=== PATIENT | male | born 1980 | race Caucasian/White ===

== ENCOUNTER 2017-11-08 09:21 | Emergency (ER) | payer OTHER ==
[~2017-11-08] VITALS: Ht 193 cm; Wt 147.4 kg
[~2017-11-08 09:21] MED LIST: EPIPEN 2-PAK1 MG/ML IM; MOTRIN800 MG PO; PERCOCET 325 MG1 TAB PO
[2017-11-08] MEDS ORDERED: NAPROXEN500 M2 PO (09:53)
[2017-11-08] MEDS ORDERED: GABAPENTIN100 M2 PO (09:54)
[2017-11-08] MEDS ORDERED: SANTYL30 GM TOP (09:54)
[2017-11-08] MEDS ORDERED: FUROSEMIDE40 M1 PO (09:54)
[2017-11-08] MEDS ORDERED: CLINDAMYCIN HC300 M1 PO (09:55)
[2017-11-08 10:18] LABS: ABSOLUTE BASOPHIL COUNT 0 /CUMM (0.0-0.2); ABSOLUTE EOSINOPHIL COUNT 0.1 /CUMM (0.0-0.7); ABSOLUTE GRANULOCYTE CT 6.6 /CUMM (1.4-6.5); ABSOLUTE LYMPH COUNT 1.7 /CUMM (1.2-3.4); ABSOLUTE MONOCYTE COUNT 0.6 /CUMM (0.10-0.60); BASOPHIL % 0.3 % (0.0-2.0); EOSINOPHIL % 0.6 % (0-5); HEMATOCRIT 44.2 % (42-52); MEAN CORPUSCULAR HGB 29.9 PG (27.0-31.0); MEAN CORPUSCULAR HGB CONC 33.8 G/DL (33.0-37.0); MEAN CORPUSCULAR VOLUME 88.6 FL (80.0-94.0); MEAN PLATELET VOLUME 9.5 FL (7.4-10.4); PLATELET COUNT 239 /CUMM (130-400); RBC DISTRIBUTION WIDTH 12.6 % (11.5-14.5); RED BLOOD CELL CT 4.99 /CUMM (4.70-6.10)
--- NOTE | 2017-11-08 10:32 | RADIOLOGY REPORT ---
EXAMINATION: XR TIBIA AND FIBULA, LEFT CLINICAL INFORMATION: Chronic nonhealing ulcer. COMPARISON: None TECHNIQUE: AP and lateral views of the left tibia and fibula were obtained. FINDINGS: No fracture or dislocation. No radiographic evidence of osteomyelitis. IMPRESSION: No radiographic evidence of osteomyelitis.
--- NOTE | 2017-11-08 11:54 | ULTRASOUND REPORT ---
EXAMINATION: US TRIPLEX LOWER EXTREMITY, LEFT CLINICAL INFORMATION: Left lower extremity pain, swelling, nonhealing ulcer. COMPARISON: None TECHNIQUE: Color-flow triplex imaging with spectral analysis and compression Doppler were performed on the lower extremity. FINDINGS: Respiratory variation, normal compression and augmented flow are noted throughout the lower extremity. The visualized common femoral vein, superficial femoral vein, profunda femoral vein, popliteal vein and midcalf peroneal and posterior tibial venous segments show no evidence of deep venous thrombosis. There is no Mckay's cyst. IMPRESSION: No evidence of deep venous thrombosis involving the lower extremity.
--- NOTE | 2017-11-08 11:57 | ULTRASOUND REPORT ---
EXAMINATION: US-LEFT LOW EXTR ARTERIAL DOP CLINICAL INFORMATION: Left lower extremity nonhealing ulcer. COMPARISON: None. TECHNIQUE: Real-time ultrasound and Doppler techniques (integrating B-mode 2-D vascular images, Doppler spectral analysis and color flow Doppler imaging) were utilized to interrogate the left lower extremity. FINDINGS: Left lower extremity: Common femoral artery: 99 cm/sec; triphasic waveform Superficial femoral artery proximal: 107 cm/sec; triphasic waveform Superficial femoral artery mid portion: 99 cm/sec; triphasic waveform Superficial femoral artery distal: 72 cm/sec; triphasic waveform Profunda artery: 81 cm/sec; triphasic waveform Popliteal artery: 59 cm/sec; triphasic waveform Posterior tibial artery: 58 cm/sec; triphasic waveform Anterior tibial artery: 85 cm/sec; triphasic waveform Dorsalis pedis artery: 59 cm/sec; triphasic waveform ADDITIONAL FINDINGS: None. IMPRESSION: Normal velocities and triphasic waveforms in the left lower extremity. Greater sensitivity and specificity can be obtained with pre-and post exercise PVRs with ELSIE calculations.
--- NOTE | 2017-11-08 13:43 | ED GENERAL ADULT ---
History of Present Illness General Chief Complaint: Lower Extremity Problems Stated Complaint: LEFT LEG INFECTIO +MRSA Source: patient Exam Limitations: no limitations Vital Signs & Intake/Output Vital Signs & Intake/Output Vital Signs Date Time Temp Pulse Resp B/P B/P Pulse O2 O2 Flow FiO2 Mean Ox Delivery Rate 11/08 1443 98.2 66 18 118/76 98 Room Air 11/08 1225 Room Air 11/08 1149 98.5 74 20 129/71 97 Room Air 11/08 0927 98.2 89 20 144/91 97 Room Air ED Intake and Output 11/09 0000 11/08 1200 Intake Total 0 Output Total 0 Balance 0 Intake, Oral 0 Output, Urine 0 Patient 325 lb Weight Weight Reported by Patient Measurement Method Allergies Coded Allergies: Penicillins (Intermediate, RASH 11/08/17) Sulfa (Sulfonamide Antibiotics) (UNKNOWN 11/08/17) epinephrine (UNKNOWN 11/08/17) ONLY EPI PEN Reconcile Medications Clindamycin HCl 300 MG CAPSULE 1 CAP PO Q6 ANTIBIOTIC, INFECTION (Reported) Collagenase Clostridium Hist. (Santyl) 250 UNIT/GRAM OINT...G. 1 NINFA TOP DAILY WOUND (Reported) Furosemide 40 MG TABLET 1 TAB PO DAILY WATER RETENTION (Reported) Gabapentin 100 MG CAPSULE 1 CAP PO TID PAIN (Reported) Naproxen 500 MG TABLET 1 TAB PO BID PAIN (Reported) Triage Note: PT TO ED MRSA TO LLE WOUND. PT HAS BEEN ON PO ABX WITH NO IMPROVEMENT. Triage Nurses Notes Reviewed? yes Onset: Gradual Duration: week(s): (FEBRUARY 2017), better, changing over time, continues in ED Timing: recent history Injury Environment: home Severity: mild, moderate HPI: 37-year-old male history of hypertension hyperlipidemia presents for evaluation of a chronic wound to his left lower extremity. Patient reports that in February of this year he was incarcerated and got a cut in his left lower extremity. He reports the wound has never healed and has been treated with antibiotics multiple times for possible infections. He states he's been treated with Bactrim greater than 5 times and is currently on clindamycin. He feels that the wound appears significantly improved from when it first started but is still present. He was started on Clinda 4 days ago and has been taking it as directed. His primary care doctor took a swab of the wound that was polymicrobial and included MRSA pseudomonas and group B strep. His primary care doctor also referred him to a wound center but he has not yet been seen. Patient denies any fevers the redness is not spreading and is actually receded since first starting. No chest pain or shortness of breath. No difficulty walking. Past History Travel History Traveled to [place] past 21 day No Medical History Any Pertinent Medical History? see below for history Surgical History Surgical History: non-contributory Psychosocial History What is your primary language Indian Tobacco Use: Quit >30 days ago ETOH Use: denies use Illicit Drug Use: denies illicit drug use Family History Hx Contributory? No Review of Systems Review of Systems Constitutional: Reports: no symptoms. EENTM: Reports: no symptoms. Respiratory: Reports: no symptoms. Cardiovascular: Reports: no symptoms. GI: Reports: no symptoms. Genitourinary: Reports: no symptoms. Musculoskeletal: Reports: no symptoms. Skin: Reports: see HPI, erythema. Neurological/Psychological: Reports: no symptoms. Hematologic/Endocrine: Reports: no symptoms. Immunologic/Allergic: Reports: no symptoms. All Other Systems: Reviewed and Negative Physical Exam Physical Exam General Appearance: well developed/nourished, no apparent distress, alert, awake Head: atraumatic, normal appearance Eyes: Bilateral: normal appearance, EOMI. Ears, Nose, Throat: hearing grossly normal Neck: normal inspection, supple, full range of motion Respiratory: normal breath sounds, chest non-tender, no respiratory distress, lungs clear Cardiovascular: regular rate/rhythm, normal peripheral pulses Back: normal inspection, normal range of motion, no vertebral tenderness Extremities: THERE IS MILD SWELLING TO THE LEFT LOWER EXTREMITY. tHERE IS A 1.5 CM DIAMETER ULCERATION TO THE LATERAL ASPECT OF THE LEFT LOWER LEG. tHERE IS SOME SURROUNDING SALMON-COLORED TISSUE. nO FOCAL FLUCTUANT AREAS. tHERE IS SEROUS DISCHARGE NO PUS DISCHARGE. nO LYMPHATIC STREAKING FOR RANGE OF MOTION OF THE ANKLE AND KNEE INTACT WITHOUT PAIN dp AND pt PULSES PRESENT BY dOPPLER. tHERE IS SHINY ATROPHIC SKIN WITHOUT HAIR INDICATING THERE MAY BE PERIPHERAL VASCULAR DISEASE THERE ARE MULTIPLE OTHER HEALED ULCERATED LESIONS TO THE FOOT AND LOWER LEG Neurologic/Psych: no motor/sensory deficits, awake, alert, oriented x 3, normal gait, normal mood/affect Skin: intact, normal color, warm/dry Lymphatic: no anterior cervical imelda Core Measures ACS in differential dx? No CVA/TIA Diagnosis: No Sepsis Present: No Sepsis Focused Exam Completed? No Progress Differential Diagnoses I considered the following diagnoses in my evaluation of the patient: [ Cellulitis, DVT, venous stasis ulcer, peripheral vascular disease, osteomyelitis , abscess] Plan of Care: Orders Procedure Date/time Status Add-on Test (ER Only) 11/08 953 Active BLOOD CULTURE 11/08 932 Active LACTIC ACID 11/08 932 Complete WESTERGREN SED RATE 11/08 932 Complete C-REACTIVE PROTEIN 11/08 932 Complete COMPREHENSIVE METABOLIC PANEL 11/08 932 Complete CBC WITHOUT DIFFERENTIAL 11/08 932 Complete Laboratory Tests 11/08/17 1233: Lactic Acid Cancelled 11/08/17 1003: Anion Gap 12, Estimated GFR > 60, BUN/Creatinine Ratio 24.3, Glucose 138 H, Lactic Acid 1.4, Calcium 9.4, Total Bilirubin 0.3, AST 32, ALT 34, Alkaline Phosphatase 82, C-Reactive Prot, Quant 2.1 H, Total Protein 7.7, Albumin 4.2, Globulin 3.5, Albumin/Globulin Ratio 1.2, CBC w Diff NO MAN DIFF REQ, RBC 4.99, MCV 88.6, MCH 29.9, MCHC 33.8, RDW 12.6, MPV 9.5, Gran % 73.0, Lymphocytes % 19.1 L, Monocytes % 7.0, Eosinophils % 0.6, Basophils % 0.3, Absolute Granulocytes 6.6 H, Absolute Lymphocytes 1.7, Absolute Monocytes 0.6, Absolute Eosinophils 0.1, Absolute Basophils 0, ESR Westergren 34 H Microbiology 11/08 1029 BLOOD: Blood Culture - RECD 11/08 1003 BLOOD: Blood Culture - RECD Patient is here for evaluation of a chronic wound to his left lower extremity. It is been treated with antibiotics multiple multiple times he currently is on clindamycin which she has been taking for the past 4 days. He recently was referred to a wound center but has not yet made an appointment. He was sent in by his primary care doctor for further evaluation. The wound does not appear to be obviously cellulitic. There is some surrounding salmon-colored tissue but no lymphatic streaking no purulent discharge suspect this may be a chronic nonhealing wound related more to peripheral vascular disease. Patient has pulses that are present by Doppler only he has skin changes associated with peripheral vascular disease. Basic blood work was obtained and is negative for a white count patient denies fever negative lactic acid. Blood cultures were obtained. CRP and sedimentation rate are mildly elevated. X-ray is negative for signs of osteomyelitis. Arterial and venous ultrasounds were obtained and are negative. Patient was given a dose of 2 g vancomycin in the emergency department. A line was made around the area of salmon-colored erythema to track spread. Patient was instructed to continue clindamycin and return in 2 days for a wound check. If the redness has spread this may indicate a failure of outpatient treatment and he may require remission for IV antibiotics if it has not spread this may confirm that it is not infected and patient should follow-up with the wound center. Patient was also referred to vascular surgery. Discussed return precautions in detail. Return immediately with fever or spreading redness lymphatic streaking patient agrees the plan Diagnostic Imaging: Viewed by Me: Radiology Read, Ultrasound. Discussed w/RAD: Radiology Read, Ultrasound. Radiology Impression: PATIENT: IGOR TARIQ PRESENT AGE: 37 PATIENT ACCOUNT NO: [id number] : 81 LOCATION: [facility] ORDERING PHYSICIAN: Catrachito BAUMANN SERVICE DATE: 11/08/17 EXAM TYPE: US - US- DUPLEX SCAN LOWER EXT ARTER EXAMINATION: US-LEFT LOW EXTR ARTERIAL DOP CLINICAL INFORMATION: Left lower extremity nonhealing ulcer. COMPARISON: None. TECHNIQUE: Real-time ultrasound and Doppler techniques (integrating B-mode 2-D vascular images, Doppler spectral analysis and color flow Doppler imaging) were utilized to interrogate the left lower extremity. FINDINGS: Left lower extremity: Common femoral artery: 99 cm/sec; triphasic waveform Superficial femoral artery proximal: 107 cm/sec; triphasic waveform Superficial femoral artery mid portion: 99 cm/sec; triphasic waveform Superficial femoral artery distal: 72 cm/sec; triphasic waveform Profunda artery: 81 cm/sec; triphasic waveform Popliteal artery: 59 cm/sec; triphasic waveform Posterior tibial artery: 58 cm/sec; triphasic waveform Anterior tibial artery: 85 cm/sec; triphasic waveform Dorsalis pedis artery: 59 cm/sec; triphasic waveform ADDITIONAL FINDINGS: None. IMPRESSION: Normal velocities and triphasic waveforms in the left lower extremity. Greater sensitivity and specificity can be obtained with pre-and post exercise PVRs with ELSIE calculations. DICTATED BY: Nicholas Lobato MD DATE/TIME DICTATED:11/08/171149 BOBTAILER:RAD.HAMMOND DATE/TIME TRANSCRIBED:1149 CONFIDENTIAL, DO NOT COPY WITHOUT APPROPRIATE AUTHORIZATION. < Electronically signed in Other Vendor System> SIGNED BY: Nicholas Lobato MD 11/08/171156, PATIENT: IGOR TARIQ PRESENT AGE: 37 PATIENT ACCOUNT NO: [id number] : 81 LOCATION: [facility] ORDERING PHYSICIAN: Catrachito BAUMANN SERVICE DATE: 11/08/17 EXAM TYPE: US - US-DUPLEX VENOUS EXTREM UNI EXAMINATION: US TRIPLEX LOWER EXTREMITY, LEFT CLINICAL INFORMATION: Left lower extremity pain, swelling, nonhealing ulcer. COMPARISON: None TECHNIQUE: Color-flow triplex imaging with spectral analysis and compression Doppler were performed on the lower extremity. FINDINGS: Respiratory variation, normal compression and augmented flow are noted throughout the lower extremity. The visualized common femoral vein, superficial femoral vein, profunda femoral vein, popliteal vein and midcalf peroneal and posterior tibial venous segments show no evidence of deep venous thrombosis. There is no Mckay's cyst. IMPRESSION : No evidence of deep venous thrombosis involving the lower extremity. DICTATED BY: Nicholas Lobato MD DATE/TIME DICTATED:11/08/171149 BOBTAILER: RADReinaldoHAMMOND DATE/TIME TRANSCRIBED:11/08/171149 CONFIDENTIAL, DO NOT COPY WITHOUT APPROPRIATE AUTHORIZATION. <Electronically signed in Other Vendor System> SIGNED BY: Nicholas Lobato MD. , PATIENT: IGOR TARIQ PRESENT AGE: 37 PATIENT ACCOUNT NO: [id number] : 81 LOCATION: [facility] ORDERING PHYSICIAN: Catrachito BAUMANN SERVICE DATE: 11/08/17 EXAM TYPE: RAD - [id number], LEFT EXAMINATION: XR TIBIA AND FIBULA, LEFT CLINICAL INFORMATION: Chronic nonhealing ulcer. COMPARISON: None TECHNIQUE: AP and lateral views of the left tibia and fibula were obtained. FINDINGS: No fracture or dislocation. No radiographic evidence of osteomyelitis. IMPRESSION: No radiographic evidence of osteomyelitis. DICTATED BY: Nicholas Lobato MD DATE/TIME DICTATED:11/08/171026 BOBTAILER:HAMMOND DATE/TIME TRANSCRIBED:11/08/171026 CONFIDENTIAL, DO NOT COPY WITHOUT APPROPRIATE AUTHORIZATION. <Electronically signed in Other Vendor System> SIGNED BY: Nicholas Lobato MD 11/08/17 1032 Initial ED EKG: none Departure Departure Disposition: HOME OR SELF CARE Condition: Stable Clinical Impression Primary Impression: Chronic wound of extremity Referrals: Ellie Ngo DO (PCP/Family) Braulio Freeman MD Additional Instructions: CONTINUE clindamycin as directed for the full course. Make a follow-up appointment with the wound care center as scheduled. Also make a follow-up with Dr. FREEMAN vascular surgeon as soon as possible. Monitor your symptoms if you notice spreading redness worsening swelling worsening pain or fever return immediately. Otherwise return in 2 days between 8 AM and 4 PM for a recheck. Return sooner with any concerns. Please go over all results of today's visit with your primary care doctor. Contact your primary care doctor to let them know you were here in the emergency room. There may be nonspecific findings which may not be related to your visit today here in the emergency room but may require further evaluation and chronic monitoring by your primary care doctor. If you had a laceration today the chance of foreign body always remains. You should follow-up with your primary care doctor for recheck in 3-5 days for a wound check. If you had an x-ray done there is a chance that a fracture could have been missed on initial read and you should follow-up with your primary care doctor for repeat x-rays if symptoms persist. If your blood pressure was elevated here in the emergency room please have rechecked by her primary care doctor within the next 48 hours by your primary care doctor. If you were prescribed a narcotic here in the emergency room or any type of controlled substances you're not allowed to drive while taking this medication or operate any type of heavy machinery. Narcotics can make you feel lightheaded dizziness nausea and can cause constipation. You may need to supervisor picking crew a stool softener. Thank you for choosing [facility] emergency room. Please return to the emergency room immediately if you have any other concerns worsening of symptoms. Departure Forms: Customer Survey General Discharge Information Critical Care Note Critical Care Note Critical Care Time: non-applicable
[2017-11-08 14:43] VITALS: BP 118/76
== END 2017-11-08 14:46 ==
LOC: ERH 09:21
PROVIDERS: Physician Assistant Medical
DX: S81.802A Unspecified open wound, left lower leg, initial encounter (principal); X58.XXXA Exposure to other specified factors, initial encounter; Y92.149 Unspecified place in prison as the place of occurrence of the external cause; Y93.9 Activity, unspecified
CPT/HCPCS: 73590-LT; 87040; 96374; J3370; J7040